=== PATIENT | female | born 1955 | race Caucasian/White ===

== ENCOUNTER 2016-05-13 12:33 | Emergency (ER) | payer BC ==
[2016-05-13 12:59] VITALS: BP 148/74
--- NOTE | 2016-05-13 15:06 | UC ---
Respiratory Complaint HPI - HPI Summary HPI Summary: "I thought it was just a plain upper respiratory infection since Sunday, but there is a lot of bloody nasal congestion, yellow green." Headache, "bloody, green yellow" nasal congestion, "a little bit" PND, sore throat, painful swallowing, decreased appetite, "a little" nausea without vomiting, tired, and "space out sensation" for five days. Patient called into work three days this week. 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 PCP Allie. pain over forehead. no wheezing. she reports that she is on metoprolol and lisinipril for HTN. uncertain of doses. she admits that her Dr thinks that she is borderline diabetic. - History of Current Complaint Chief Complaint: UCGeneralIllness Stated Complaint: SINUS,SORE THROAT,HEADACHE Time Seen by Provider: 05/13/16 15:04 - Allergies/Home Medications Allergies/Adverse Reactions: Allergies Allergy/AdvReac Type Severity Reaction Status Date / Time No Known Allergies Allergy Verified 05/13/16 12:54 Home Medications: Home Medications [id number] [Vicks Dayquil/Nyquil Cold] 30 ml PO Q6H PRN [History Confirmed 05/13/16] PMH/Surg Hx/FS Hx/Imm Hx Previously Healthy: Yes Cardiovascular History Of: Reports: Cardiac Disorders - Ascending Aortic Aneurysm, Hypertension - Surgical History Surgical History: Yes Surgery Procedure, Year, and Place: Abdominal Lipoma - Family History Known Family History: Positive: Cardiac Disease Negative: Diabetes - Social History Alcohol Use: "a couple glasses of wine" Substance Use Type: None Smoking Status (MU): Former Smoker Type: Cigarettes Amount Used/How Often: 1 PPD Length of Time of Smoking/Using Tobacco: On and Off for 24 Years When Did the Patient Quit Smoking/Using Tobacco: ~1995 - Immunization History Most Recent Influenza Vaccination: February 2016 Review of Systems Constitutional: Negative Skin: Negative Eyes: Negative ENT: Sore Throat, Nasal Discharge Respiratory: Cough Cardiovascular: Negative Gastrointestinal: Negative Genitourinary: Negative Motor: Negative Neurovascular: Negative Musculoskeletal: Negative Neurological: Negative Psychological: Negative All Other Systems Reviewed And Are Negative: Yes Physical Exam Triage Information Reviewed: Yes Appearance: Well-Appearing, No Pain Distress, Well-Nourished Vital Signs: Initial Vital Signs Temp 98.4 F 05/13/16 12:51 Pulse 68 05/13/16 12:51 Resp 18 05/13/16 12:51 BP 148/74 05/13/16 12:51 Pulse Ox 99 05/13/16 12:51 Vital Signs Reviewed: Yes Eye Exam: Normal ENT Exam: Normal ENT: Positive: Pharyngeal erythema - +PND, + b/l frontal tenderness, Nasal congestion, Nasal drainage, TMs normal. Negative: Tonsillar swelling, Tonsillar exudate Dental Exam: Normal Neck exam: Normal Neck: Positive: Supple, Nontender, No Lymphadenopathy Respiratory Exam: Normal Respiratory: Positive: Lungs clear, Normal breath sounds, No respiratory distress, No accessory muscle use Cardiovascular Exam: Normal Cardiovascular: Positive: RRR, No Murmur, Pulses Normal, Brisk Capillary Refill Abdominal Exam: Normal Abdomen Description: Positive: Nontender, Soft Musculoskeletal Exam: Normal Neurological Exam: Normal Psychological Exam: Normal Skin Exam: Normal UC Diagnostic Evaluation - Laboratory O2 Sat by Pulse Oximetry: 99 Respiratory Course/Dx - Course Course Of Treatment: is very upset with wait time today, Elham is not. They are both very agreeable with this plan. - Differential Dx/Diagnosis Differential Diagnosis/HQI/PQRI: Aspiration, Bronchitis, Laryngitis, Sinusitis Provider Diagnoses: sinusitis Discharge - Discharge Plan Condition: Stable Disposition: HOME Prescriptions: Amoxicillin (*) 875 mg PO BID #20 tab Patient Education Materials: Sinusitis (ED) Referrals: Karla Post MD [Primary Care Provider] - 3 Days Additional Instructions: Take a probiotic while you are taking the antibiotic. fluids, rest, tylenol. no advil because of hypertension
== END 2016-05-13 15:23 | disposition home or self-care (01) ==
LOC: UCCORT 12:33
DX: J32.9 Chronic sinusitis, unspecified (principal); Z87.891 Personal history of nicotine dependence
CPT/HCPCS: 99202; G0463